=== PATIENT | male | born 1990 | race Two or more races ===

== ENCOUNTER 2018-05-06 19:45 | Emergency (ER) | payer SELFPAY ==
[~2018-05-06] VITALS: Ht 175.3 cm; Wt 107.5 kg
--- NOTE | 2018-05-06 21:47 | RAD ---
Right Lower Extremity Venous Doppler Ultrasound History: Right leg pain Comparison: None Procedure: Color flow, duplex, spectral analysis and 2D images are obtained with and without compression in the area of the common femoral vein, superficial femoral vein - femoral vein junction, main femoral vein (superficial femoral vein) and popliteal vein. Veins of the proximal calf are also imaged. Findings: There is normal duplex flow, color flow and compressibility of all visualized vein segments. No evidence of deep venous thrombus is present. Impression: No evidence of DVT. Electronically signed by: Albert Casey III, MD (05/06/2018 9:43 PM) [facility]
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
[2018-05-06 22:52] VITALS: BP 101/49
--- NOTE | 2018-05-07 08:23 | RAD ---
EXAM: 3 views right knee DATE: 05/06/2018 8:16 PM INDICATION: pain with ambulation, no recent injury COMPARISON: 01/03/2016 FINDINGS: No evidence of acute fracture or dislocation. Small tricompartmental osteophytes are seen. No right knee joint effusion. Metallic foreign body is seen overlying the proximal tibial shaft, stable. IMPRESSION: 1. No evidence of acute fracture or dislocation. 2. Small tricompartmental osteophytes are seen. Electronically signed by: Carlo Galvin MD (05/07/2018 8:19 AM) [facility]
== END 2018-05-06 23:24 | disposition home or self-care (01) ==
LOC: ER 19:45
DX: M25.761 Osteophyte, right knee (principal); Z90.49 Acquired absence of other specified parts of digestive tract
CPT/HCPCS: 73562; 93971; 99284

== ENCOUNTER 2018-11-26 15:32 | Emergency (ER) | payer SELFPAY ==
[~2018-11-26] VITALS: Ht 175.3 cm; Wt 108.9 kg
[2018-11-26] MEDS ORDERED: BENZONATATE 100 MG CAPSULE. PO ONE (15:45)
[2018-11-26] MEDS ORDERED: IPRATRPIUM/ALBUTEROL 0.5/2.5MG 3 ML NEBU. NEB ONE (15:45)
[2018-11-26] MEDS ORDERED: predniSONE 10 MG TABLET PO ONE (15:45)
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
[2018-11-26 15:58] VITALS: BP 158/68
--- NOTE | 2018-11-26 16:11 | RAD ---
AP and Lateral Views of the Chest 11/26/2018 3:52 PM Indication: Cough and sore throat x 2 weeks Comparison: None Findings: There is no focal consolidation or infiltrate identified. The cardiomediastinal silhouette is within normal limits. There is no evidence of pneumothorax or pleural effusion. No acute osseous abnormalities are identified. Impression: No evidence of acute cardiopulmonary process. Electronically signed by: Matthew Colorado MD (11/26/2018 4:08 PM) [id number]
[2018-11-26] MEDS ORDERED: PRED50TA PO (16:19)
[2018-11-26] MEDS ORDERED: VENTOLIN HFA18 GM INH (16:19)
[2018-11-26] MEDS ORDERED: BENZ100C PO (16:19)
== END 2018-11-26 16:22 | disposition home or self-care (01) ==
LOC: ER 15:32
DX: J20.9 Acute bronchitis, unspecified (principal); J02.8 Acute pharyngitis due to other specified organisms; B97.89 Other viral agents as the cause of diseases classified elsewhere; F17.200 Nicotine dependence, unspecified, uncomplicated; Z90.49 Acquired absence of other specified parts of digestive tract
CPT/HCPCS: 71046; 87880; 94640; 99284; J7512; J7620; 87070

== ENCOUNTER → 2019-01-02 | Outpatient (CLI) | payer OTHER ==
[~2019-01-02] MED LIST: BENZ100C PO; PRED50TA PO; VENTOLIN HFA18 GM INH
--- NOTE | 2019-01-02 14:06 | RAD ---
2 VIEW STUDY OF THE RIGHT KNEE Clinical indications: Right knee pain FINDINGS: No acute fracture or dislocation or lytic process is evident. There is mild joint space narrowing and spurring of the medial tibiofemoral joint compartment and the patellofemoral joint compartment. Small radiopaque loose bodies within the posterior tibiofemoral joint compartment. No significant knee joint effusion is seen. IMPRESSION: Mild primary degenerative osteoarthritis. THREE-VIEW LUMBAR SPINE SERIES: INDICATIONS: Low back pain. FINDINGS: No compression fracture or discitis or lytic process or anterolisthesis is seen. No significant degenerative disc space narrowing and endplate spurring is seen. The transverse processes are intact. IMPRESSION: No significant osseous abnormality of the lumbar spine. Electronically signed by: Fuad Santana MD (01/02/2019 2:03 PM) [id number]
== END | disposition home or self-care (01) ==
LOC: RAD 08:52
PROVIDERS: ATTEND Surgery
DX: M17.11 Unilateral primary osteoarthritis, right knee (principal); M23.41 Loose body in knee, right knee; M76.891 Other specified enthesopathies of right lower limb, excluding foot; M54.5 Low back pain
CPT/HCPCS: 72100; 73560

== ENCOUNTER 2019-07-14 18:44 | Emergency (ER) | payer MEDICAID, OTHER ==
[~2019-07-14] VITALS: Ht 175.3 cm; Wt 99.8 kg
[2019-07-14 19:09] LABS: BILIRUBIN,URINE NEGATIVE (NEG); CLARITY,URINE CLEAR; COLOR,URINE YELLOW; NITRITE,URINE NEGATIVE (NEG); PH,URINE 6.5; PROTEIN,URINE NEGATIVE (NEG-TRACE); UROBILINOGEN,URINE 0.2 mg/dL (0.2 mg/dL)
[2019-07-14 19:23] LABS: BACTERIA,URINE 0 /HPF (0-FEW); RBC,URINE 0 /HPF (0-2); SQUAMOUS EPITHELIAL CELL,UR OCC /LPF; WBC,URINE 0 /HPF (0-4)
[2019-07-14 19:30] LABS: BASO % 1 % (0-3); EOS # 0.1 x10^3/uL (0.0-0.7); EOS % 1 % (0-3); HEMOGLOBIN 14.7 g/dL (13.0-17.5); LYMPH # 2.6 x10^3/uL (1.0-4.8); LYMPH % 27 % (24-48); MEAN CORPUSCULAR HEMOGLOBIN 31 pg (25-35); MEAN CORPUSCULAR HGB CONC 34 g/dL (31-37); MEAN CORPUSCULAR VOLUME 91 fL (79-100); MONO # 0.7 x10^3/uL (0.0-1.1); MONO % 7 % (0-9); NEUT # 6.3 x10^3/uL (1.8-7.7); NEUT % 64 % (31-73); PLATELET COUNT 254 x10^3/uL (140-400); RED BLOOD COUNT 4.74 x10^6/uL (4.30-5.70); RED CELL DISTRIBUTION WIDTH 13.6 % (11.5-14.5); WHITE BLOOD COUNT 9.7 x10^3/uL (4.0-11.0)
[2019-07-14] MEDS ORDERED: ONDANSETRON PF 4 MG/2 ML VIAL. IV ONE (19:30)
[2019-07-14] MEDS ORDERED: fentaNYL PF VIAL 100 MCG/2 ML VIAL IV ONE (19:30)
[2019-07-14] MEDS ORDERED: IV NORMAL SALINE 1000ML BAG 1,000 ML IV ONE (19:30)
[2019-07-14 19:44] LABS: CALCIUM 8.8 mg/dL (8.5-10.1); GFR 87.7; POTASSIUM 3.9 mmol/L (3.5-5.1)
[2019-07-14] MEDS ORDERED: ORPHENADRINE CITRATE 60 MG/2 ML VIAL. IV ONE (19:45)
[2019-07-14] MEDS ORDERED: DEXAMETHASONE SOD PHOS 20 MG/5 ML VIAL. IV ONE (19:45)
[2019-07-14 19:50] LABS: ALBUMIN 3.4 g/dL (3.4-5.0); ALBUMIN/GLOBULIN RATIO 0.9 (1.0-1.7); TOTAL BILIRUBIN 0.2 mg/dL (0.2-1.0); TOTAL PROTEIN 7.1 g/dL (6.4-8.2)
[2019-07-14] MEDS ORDERED: ORPH100T PO (20:29)
[2019-07-14] MEDS ORDERED: NAPR-514 PO (20:29)
[2019-07-14 20:30] VITALS: BP 122/58
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
== END 2019-07-14 20:48 | disposition home or self-care (01) ==
LOC: ER 18:44
DX: D17.1 Benign lipomatous neoplasm of skin and subcutaneous tissue of trunk (principal); M54.41 Lumbago with sciatica, right side; R11.2 Nausea with vomiting, unspecified; Z90.49 Acquired absence of other specified parts of digestive tract
CPT/HCPCS: 36415; 80053; 81001; 85025; 96361; 96374; 96375; 99284; J1100; J2360; J2405; J7030

== ENCOUNTER 2021-02-15 07:02 | Emergency (ER) | payer MEDICAID ==
[~2021-02-15] VITALS: Ht 175.3 cm; Wt 80.0 kg
[~2021-02-15 07:02] MED LIST changes: +NAPR-514 PO; +ORPH100T PO
[2021-02-15] MEDS ORDERED: METOCLOPRAMIDE HCL 10 MG/2 ML VIAL. IVP ONE (08:30)
[2021-02-15] MEDS ORDERED: FAMOTIDINE 20 MG/2 ML VIAL IVP ONE (08:30)
[2021-02-15] MEDS ORDERED: IV NORMAL SALINE 1000ML BAG 1,000 ML IV ONE (08:30)
[2021-02-15 08:40] LABS: BASO % 0 % (0-3); EOS # 0.1 x10^3/uL (0.0-0.7); EOS % 1 % (0-3); HEMATOCRIT 49.5 % (39.0-53.0); HEMOGLOBIN 16.9 g/dL (13.0-17.5); LYMPH # 1.5 x10^3/uL (1.0-4.8); LYMPH % 18 % (24-48); MEAN CORPUSCULAR HEMOGLOBIN 31 pg (25-35); MEAN CORPUSCULAR HGB CONC 34 g/dL (31-37); MEAN CORPUSCULAR VOLUME 90 fL (79-100); MONO # 0.9 x10^3/uL (0.0-1.1); MONO % 10 % (0-9); NEUT # 5.9 x10^3/uL (1.8-7.7); NEUT % 70 % (31-73); PLATELET COUNT 252 x10^3/uL (140-400); RED BLOOD COUNT 5.48 x10^6/uL (4.30-5.70); WHITE BLOOD COUNT 8.4 x10^3/uL (4.0-11.0)
[2021-02-15 08:42] LABS: BILIRUBIN,URINE SMALL (NEG); CLARITY,URINE CLEAR; NITRITE,URINE NEGATIVE (NEG); PH,URINE 5.5 (<5.0-8.0); PROTEIN,URINE NEGATIVE (NEG-TRACE); UROBILINOGEN,URINE 0.2 mg/dL (0.2 mg/dL)
[2021-02-15 08:43] LABS: COLOR,URINE YELLOW
--- NOTE | 2021-02-15 08:45 | RAD ---
EXAM: Chest, single view. HISTORY: Epigastric pain. COMPARISON: 11/26/2018 FINDINGS: A frontal view of the chest is obtained. There is no infiltrate, pleural effusion or pneumo thorax. The heart is normal in size. IMPRESSION: No acute pulmonary finding. Electronically signed by: Mariah Madrid MD (02/15/2021 8:43 AM) [id number]
[2021-02-15 08:48] LABS: BARBITURATES NEG (NEG); BENZODIAZEPINES NEG (NEG); CANNABINOIDS POS (NEG); COCAINE NEG (NEG); CREATININE 1.2 mg/dL (0.7-1.3); GFR 70.2; METHADONE NEG (NEG); OPIATES NEG (NEG); PHENCYCLIDINE NEG (NEG); POTASSIUM 3.5 mmol/L (3.5-5.1)
[2021-02-15 08:49] LABS: AMPHETAMINE/METHAMPHETAMINE POS (NEG)
[2021-02-15 08:51] LABS: BACTERIA,URINE FEW /HPF (0-FEW); RBC,URINE OCC /HPF (0-2)
[2021-02-15 08:54] LABS: ALBUMIN 4.6 g/dL (3.4-5.0); ALBUMIN/GLOBULIN RATIO 1.4 (1.0-1.7); TOTAL BILIRUBIN 0.5 mg/dL (0.2-1.0)
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
[2021-02-15] MEDS ORDERED: HALOPERIDOL LACTATE 5 MG/ML VIAL. IVP ONE (09:15)
[2021-02-15] MEDS ORDERED: KETOROLAC 15 MG/ML VIAL. IVP ONE (09:45)
[2021-02-15] MEDS ORDERED: KETOROLAC 15 MG/ML VIAL. ONE (09:48)
[2021-02-15] MEDS ORDERED: IOHEXOL 300 MG/ML 100ML VIAL. IV ONE (10:00)
--- NOTE | 2021-02-15 10:38 | RAD ---
CT scan of the abdomen and pelvis with contrast 02/15/2021 CLINICAL HISTORY: Epigastric pain. TECHNIQUE: After the intravenous administration of 75 cc of Omnipaque 300 only, contiguous, 5 mm axia l sections were obtained through the abdomen and pelvis. One or more of the following individualized dose reduction techniques were utilized for this study: 1. Automated exposure control. 2. Adjustment of the mA and/or kV according to patient size. 3. Use of iterative reconstruction technique. FINDINGS: Images through the lung bases demonstrate minimal dependent subsegmental atelectasis bilate rally. The liver, spleen, pancreas, adrenal glands and kidneys are within normal limits. The abdominal aorta tapers normally. Surgical clips are seen within the gallbladder fossa consistent with a cholecystectomy. The stomach is distended with food debris. There is no evidence of bowel obst ruction. The appendix is well-visualized and is within normal limits. Images through the pelvis demonstrate the urinary bladder to be contracted. No free fluid is seen. Mi nimal S-shaped curvature of the thoracolumbar spine is seen. IMPRESSION: No acute abnormality is seen. Electronically signed by: Nikita Davis MD (02/15/2021 10:35 AM) [id number]
[2021-02-15 12:33] VITALS: BP 119/67
[2021-02-15] MEDS ORDERED: CAPS42.514 TP (12:38)
== END 2021-02-15 13:01 | disposition home or self-care (01) ==
LOC: ER 07:02
DX: R10.13 Epigastric pain (principal); R11.2 Nausea with vomiting, unspecified; R19.7 Diarrhea, unspecified; F19.10 Other psychoactive substance abuse, uncomplicated; F17.200 Nicotine dependence, unspecified, uncomplicated
CPT/HCPCS: 36415; 71045; 74177; 80053; 80307; 81001; 82550; 83690; 84484; 85025; 87086; 96361; 96374; 96375; 99285; J1630; J1885; J2765; J3490; J7030; Q9967; 93005

== ENCOUNTER 2021-03-19 14:14 | Emergency (ER) | payer MEDICAID ==
[~2021-03-19] VITALS: Ht 190.5 cm; Wt 75.0 kg
[~2021-03-19 14:14] MED LIST changes: +CAPS42.514 TP
[2021-03-19] MEDS ORDERED: KETOROLAC 30 MG/ML VIAL. IVP ONE (15:30)
[2021-03-19] MEDS ORDERED: IV NORMAL SALINE 1000ML BAG 1,000 ML IV ONE (15:30)
[2021-03-19] MEDS ORDERED: diphenhydrAMINE 50 MG/ML VIAL IVP ONE (15:30)
[2021-03-19] MEDS ORDERED: methylPREDNISolone SOD SUCC PF 125 MG/2 ML VIAL. IV ONE (15:30)
[2021-03-19 15:36] LABS: BASO # 0.1 x10^3/uL (0.0-0.2); BASO % 1 % (0-3); EOS % 0 % (0-3); HEMATOCRIT 42.6 % (39.0-53.0); HEMOGLOBIN 14.4 g/dL (13.0-17.5); LYMPH # 2.4 x10^3/uL (1.0-4.8); LYMPH % 18 % (24-48); MEAN CORPUSCULAR HEMOGLOBIN 31 pg (25-35); MEAN CORPUSCULAR HGB CONC 34 g/dL (31-37); MEAN CORPUSCULAR VOLUME 90 fL (79-100); MONO # 1.4 x10^3/uL (0.0-1.1); MONO % 11 % (0-9); NEUT # 9.4 x10^3/uL (1.8-7.7); NEUT % 71 % (31-73); PLATELET COUNT 223 x10^3/uL (140-400); RED BLOOD COUNT 4.72 x10^6/uL (4.30-5.70); RED CELL DISTRIBUTION WIDTH 13.1 % (11.5-14.5); WHITE BLOOD COUNT 13.3 x10^3/uL (4.0-11.0)
[2021-03-19 15:46] LABS: CREATININE 1.3 mg/dL (0.7-1.3); POTASSIUM 3.4 mmol/L (3.5-5.1)
[2021-03-19 16:01] LABS: ALBUMIN 4.3 g/dL (3.4-5.0); ALBUMIN/GLOBULIN RATIO 1.3 (1.0-1.7); TOTAL BILIRUBIN 0.9 mg/dL (0.2-1.0); TOTAL PROTEIN 7.6 g/dL (6.4-8.2)
--- NOTE | 2021-03-19 16:03 | RAD ---
Exam Date: 03/19/2021 3:40 PM XR ELBOW COMPLETE_RIGHT 3+ VIEWS Indication: Reason: RIGHT ELBOW SWELLING AND PAIN / Spl. Instructions: / History: . FINDINGS/ IMPRESSION: No acute fracture or dislocation. Alignment and joint spaces are maintained. The soft tissues are w ithin normal limits. Electronically signed by: Boo Kennedy MD (03/19/2021 4:01 PM) [id number]
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
[2021-03-19] MEDS ORDERED: VANCOMYCIN PER PHARMACY MC PRN (16:30)
[2021-03-19] MEDS ORDERED: VANCOMYCIN 1.75 GM in IV NORMAL SALINE 500ML BAG 500 ML IV ONE (17:00)
[2021-03-19] MEDS ORDERED: NAPR-683 PO (17:17)
[2021-03-19] MEDS ORDERED: PRED20TA PO (17:17)
[2021-03-19] MEDS ORDERED: CEPH500C PO (17:17)
[2021-03-19 17:22] VITALS: BP 131/77
== END 2021-03-19 19:30 | disposition home or self-care (01) ==
LOC: ER 14:14
DX: S50.361A Insect bite (nonvenomous) of right elbow, initial encounter (principal); L03.113 Cellulitis of right upper limb; F17.200 Nicotine dependence, unspecified, uncomplicated; W57.XXXA Bitten or stung by nonvenomous insect and other nonvenomous arthropods, initial encounter; Y93.89 Activity, other specified; Y92.89 Other specified places as the place of occurrence of the external cause; Y99.8 Other external cause status
CPT/HCPCS: 36415; 73080; 80053; 83605; 85025; 87040; 96365; 96366; 96368; 96375; 99285; J0690; J1200; J1885; J2930; J3370; J7030; J7040